=== PATIENT | female | born 1985 | race Caucasian/White ===

== ENCOUNTER 2021-08-27 07:30 | Inpatient (IN) ==
--- NOTE | 2021-08-17 14:15 | Anesthesiology Consultation ---
Date of Service August 17, 2021 Assessment & Plan (1) Encounter for pre-operative examination: Chart Review Chart Review: Acceptable Risk for Surgery History Surgery Operation Date: 08/27/21 08:50 Proposed Procedures p Section (Delivery of Baby Through Abdominal Incision) - Erika Cox DO Height/Weight Height: 5 ft 3 in Weight: 81.647 kg Allergies Allergy/AdvReac Type Severity Reaction Status Date / Time Sulfa (Sulfonamide Allergy Intermediate Hives Verified 08/17/21 09:06 Antibiotics) sulfamethoxazole Allergy Mild Hives Verified 08/17/21 09:06 [From Bactrim] trimethoprim [From Bactrim] Allergy Mild Hives Verified 08/17/21 09:06 Medications Home Medications Medication Instructions Recorded Confirmed Last Taken levothyroxine 75 mcg tablet 50 mcg PO QAM 01/08/21 08/17/21 02/19/21 (Synthroid) prenat.vits,martin,[id number] 1 tab PO QDL 01/26/21 08/17/21 02/18/21 breast pump #1 ea 05/04/21 08/15/21 Unknown ferrous sulfate 325 mg (65 mg 325 mg PO QPM 08/17/21 08/17/21 Unknown iron) tablet (Iron (ferrous sulfate)) Past Medical History Medical History (Updated 08/17/21 @ 14:15 by Ruddy Bowen MD) History of chicken pox History of kidney stones Hypothyroidism Nausea and vomiting after administration of anesthetic agent Past Family History Family History Grandmother (Maternal) Breast cancer Mother Depression Grandfather (Maternal) Kidney disease Grandfather (Paternal) Cancer Past Surgical History Surgical History H/O dilation and curettage H/O wisdom tooth extraction History of delivery Hx of lithotripsy S/P debridement WOUND- AFTER C SECTION- WITH WOUND VAC Social History Smoking Status: Never smoker Do You Dip or Chew Tobacco: No Hx Alcohol Use: No Hx Substance Use: No substance use type: does not use Testing Laboratory Results Laboratory Tests 07/19/21 07/19/21 16:48 16:48 Hgb 11.0 L Plt Count 236 Potassium 3.1 L Creatinine 0.72
[~2021-08-27 07:30] MED LIST: CITRIC ACID/SODIUM CITRATE 15 ML UDC PO SCH; ceFAZolin 2000MG 2,000 MG/15 ML SYR IV SCH
[2021-08-27] MEDS ORDERED: OXYTOCIN 30 UNITS/500 ML BAG IV PRN (09:38)
[2021-08-27] MEDS ORDERED: LACTATED RINGER'S 1,000 ML IV PRN (09:38)
[2021-08-27] MEDS ORDERED: LACTATED RINGER'S 1,000 ML IV SCH ×2 (09:45→12:11)
[2021-08-27] MEDS ORDERED: SODIUM CHLORIDE 0.9% 250 ML IV PRN (09:46)
[2021-08-27] MEDS ORDERED: MoRPHine SULFATE PF 1 MG/ML 10 ML AMP/VIAL ONE (10:06)
[2021-08-27] MEDS ORDERED: fentaNYL citrate 100 MCG/2 ML VIAL ONE (10:06)
[2021-08-27] MEDS ORDERED: OXYTOCIN 10 UNITS/ML 10ML VIAL ONE (10:06)
--- NOTE | 2021-08-27 10:18 | History & Physical Report ---
Date of Service August 27, 2021 Assessment & Plan (1) Previous section complicating : Plan: Plan for section, reviewed consent in office. Plans for RAYNA dressing. Questions answered. History of Present Illness Chief Complaint: repeat CS Primary Care Provider: NO PCP 36yo @ 39 03/26, plans for repeat d/t breech presentation. AMA -Weekly NSTs @ 36 weeks Velamentous Cord -Growth US Q4wks starting at 28wks -NSTs weekly at 36wks Hypothyroid *Check TFTs Q4wks Breech Presentation *Already scheduled for 39w CS Previous x1. -Desires - at 20wk changed to wanting RCS C/S SCHEDULED FOR 08/27/[address] BOTELLO - plan for RAYNA dressing NEEDS COVID TEST ON 08/23/2021-ORDERED History of Pituitary Tumor- Prolactinoma -Dr Amaro at [place] follows Allergies Allergy/AdvReac Type Severity Reaction Status Date / Time Sulfa (Sulfonamide Allergy Intermediate Hives Verified 08/24/21 07:01 Antibiotics) sulfamethoxazole Allergy Mild Hives Verified 08/24/21 07:01 [From Bactrim] trimethoprim [From Bactrim] Allergy Mild Hives Verified 08/24/21 07:01 Home Medications Medication Instructions Recorded Confirmed Type levothyroxine 75 mcg tablet 50 mcg PO QAM 01/08/21 08/24/21 History (Synthroid) prenat.vits,martin,[id number] 1 tab PO QDL 01/26/21 08/24/21 History ferrous sulfate 325 mg (65 mg 325 mg PO QPM 08/17/21 08/24/21 History iron) tablet (Iron (ferrous sulfate)) Patient History Medical History History of chicken pox History of kidney stones Hypothyroidism Nausea and vomiting after administration of anesthetic agent Surgical History H/O dilation and curettage H/O wisdom tooth extraction History of delivery Hx of lithotripsy S/P debridement WOUND- AFTER C SECTION- WITH WOUND VAC Family History Grandmother (Maternal) Breast cancer Mother Depression Grandfather (Maternal) Kidney disease Grandfather (Paternal) Cancer Social History Smoking Status: Never smoker Second Hand Exposure: No; Hx Alcohol Use: No Hx Substance Use: No Preferred Language: Arabic Communication Ability: Effective Visual Impairment: No Limitations Hearing Ability: Normal Electronic Engineering Technician Required: No Beliefs That Will Affect Care: None marital status: marital status details: Julien Hurtado (32) [phone] Current Living Situation: Spouse Current Living Situation Comment: , Julien and son, Max- 2y/o current occupational status: employed current occupation: Business reporting- system [employer] Feels Safe at Home: Yes Assistive Devices: None Review of Systems All systems reviewed & are unremarkable except as noted in HPI & below Physical Exam Constitutional: WD/WN, vitals as above Respiratory: normal respiratory effort, lungs clear to auscultation no respiratory distress Cardiovascular: Rate/Rhythm: regular rate and regular rhythm Gastrointestinal (Abdomen): Inspection/Auscultation: abdomen normal to inspection Percussion/Palpation: abdomen soft; abdomen nontender Gravid. No s/s chorio or abruption. Skin: no rashes, warm and dry Psychiatric: A+Ox3, euthymic affect Results & Data ([facility]) Vital Signs (Past 12 Hours) Vital Signs Temp Resp 08/27/21 08:34 36.7 C 18 Code Status & VTE Plan VTE Prophylaxis Plan VTE Prophylaxis will be ordered: No Monitoring External Monitor FHT ascultated on arrival by nursing Coding Level of Care Code None Diagnoses Previous section complicating O34.219
--- NOTE | 2021-08-27 10:27 | History & Physical Bridge Note ---
Date of Service August 27, 2021 History & Physical Bridge Note I have examined the patient, reviewed the History & Physical and in the interval since the performance of the History & Physical I have noted the following changes of clinical significance: no changes noted
[2021-08-27] MEDS ORDERED: PHENYLEPHRINE 100MCG/ML 5ML SYR ONE (10:44)
[2021-08-27] MEDS ORDERED: ONDANSETRON INJ 2 MG/ML 2 ML VIAL ONE (10:44)
[2021-08-27 11:24] LABS: Basophils # (auto) 0.06 K/uL (0-0.2); Basophils % (auto) 0.7 %; Eosinophils # (auto) 0.09 K/uL (0-0.50); Eosinophils % (auto) 1.1 %; Hematocrit (blood only) 35.7 % (34.1-44.9); Immature Granulocytes # (auto) 0.28 K/uL (0.00-0.02); Immature Granulocytes % (auto) 3.3 %; Lymphocytes % (auto) 20.3 %; Mean Corpuscular Hemoglobin 29.7 pg (25.0-34.0); Mean Corpuscular Hgb Conc 33.6 g/dL (32.0-36.0); Mean Corpuscular Volume 88.4 fL (80.0-100.0); Mean Platelet Volume 9.9 fL (9.4-12.3); Monocytes # (auto) 0.64 K/uL (0.24-0.82); Monocytes % (auto) 7.6 %; Platelet Count 232 K/uL (130-400); RDW Coefficient of Variation 14.5 % (11.5-14.5); Red Blood Count 4.04 M/uL (3.93-5.22); White Blood Count 8.37 K/ul (4.8-10.8)
[2021-08-27 11:58] LABS: Base Excess Cord Arterial Bld -8.3 mEq/L (-9-1.8); CO2 Cord Arterial Blood 68 mmHg (39.1-73.5); HCO3 Cord Arterial Blood 22 mmol/L (19.7-28.5); PO2 Cord Arterial Blood 23 mmHg (4.1-31.7); pH Cord Arterial Blood 7.12 (7.1-7.38)
--- NOTE | 2021-08-27 12:01 | Operative Report ---
PG Post Operative Report Pre & Post Diagnosis Operation Date: 08/27/21 09:55 PreOp: h/o , 39+ weeks, Breech presentation PostOp: same I identified the patient and participated in the time-out.: Yes Procedure Operation Date: 08/27/21 09:55 Repeat low transverse section Surgeon Erika Cox, DO Retail Service Technician Lori Nguyễn RN Estimated Blood Loss 600 Findings Consistent with Post-Op Diagnosis Viable female , Apgars 8/8. 2-vessel cord. Normal appearing uterus, fallopian tubes, ovaries. Adhesive disease lower uterine segment. Specimens Placenta, cord blood, cord gas Drains ram clear yellow Anesthesia Type Spinal Disposition Accompanied Patient To Recovery: No Disposition: L&D Indications 36yo @ 39 03/26, h/o x 1, desire for repeat, breech presentation Description of Procedure The patient was seen in her labor and delivery room, risks benefits and alternatives to surgery were reviewed. Informed consent obtained. Questions were answered. She was taken to the operating room, spinal anesthesia was administered. She was then prepared and draped in the usual sterile fashion in the supine position with a leftward tilt. Timeout was confirmed. A Pfannenstiel skin incision was made above prior incision with a scalpel, and carried through to the underlying layer of fascia. Fascia was nicked at midline, and this incision was extended bilaterally. The superior aspect of the fascial incision was grasped with Linda clamps x2, elevated off the underlying rectus abdominis muscles, and dissected sharply and bluntly. In similar fashion, the inferior aspect of the fascial incision was dissected. The rectus abdominis muscles were , and the peritoneum was entered bluntly digitally. This was extended bilaterally. The bladder flap was taken down carefully using Metzenbaum scissors. Using a new scalpel, a low transverse uterine incision was created. Clear amniotic fluid noted. The infant was delivered from a cephalic presentation. The head delivered, followed by shoulders and body. Spontaneous cry on the field. The cord was doubly clamped and cut, and the infant was handed off to the [facility] printed circuit board pcb draftsman. A segment was retained for cord gases. Cord blood was obtained. The placenta was delivered spontaneously intact. The uterus was exteriorized, and cleared of all clots and debris. The hysterotomy incision was reapproximated using 0 Vicryl in a running locked stitch. A second layer of the same suture was used to imbricate the incision. Posterior uterus was evaluated and normal. Figure of eight sutures used of 2-0 Vicryl to obtain excellent hemostasis. The uterus was returned to the abdomen, and gutters were cleared of clots and debris. Excellent hemostasis was observed. The fascial incision was reapproximated using 0 Vicryl in a running stitch. The subcutaneous tissue was irrigated, and reapproximated using 2-0 plain gut in a running stitch. The skin was reapproximated using 4-0 Vicryl in a running subcuticular stitch. RAYNA dressing applied. The patient tolerated the procedure well, and will be taken to the recovery area in stable and good condition. I attest to the content of the Intraoperative Record and any orders documented therein. Any exceptions are noted below. OB Procedure Charges 08808
[2021-08-27 12:03] LABS: Oxygen Sat Cord Arterial Blood < 60.0 % (<60)
[2021-08-27 12:05] LABS: Base Excess Cord Venous Blood -2.2 mEq/L (-7.7-1.9); Cord Venous Blood HCO3 25 mmol/L (18.4-26.8); Cord Venous Blood PCO2 49 mmHg (30.4-57.2); Cord Venous Blood PO2 43 mmHg (14.1-43.3); Cord Venous Blood pH 7.31 (7.20-7.44); O2 Saturation Cord Venous Bld 67.4 % (<68)
[2021-08-27] MEDS ORDERED: MAGNESIUM HYDROXIDE SUSP 30 ML UDC PO PRN (12:11)
[2021-08-27] MEDS ORDERED: diphenhydrAMINE 50 MG/ML VIAL IV PRN ×2 (12:11→15:48)
[2021-08-27] MEDS ORDERED: HYDROCORTISONE ACETATE 25 MG SUPP PR PRN (12:11)
[2021-08-27] MEDS ORDERED: BENZOCAINE 20% AER SPR 82.5 GM CAN EXT PRN (12:11)
[2021-08-27] MEDS ORDERED: oxyCODONE/ACETAMINOPHEN 5mg/325mg TAB PO PRN (12:11)
[2021-08-27] MEDS ORDERED: PROMETHAZINE HCL 25 MG in SODIUM CHLORIDE 0.9% 50 ML IV PRN (12:11)
[2021-08-27] MEDS ORDERED: ONDANSETRON INJ 2 MG/ML 2 ML VIAL IV PRN ×2 (12:11→15:48)
[2021-08-27] MEDS ORDERED: diphenhydrAMINE Capsule 25 MG CAP PO PRN (12:11)
[2021-08-27] MEDS ORDERED: SENNA 8.6 MG TAB PO PRN (12:11)
[2021-08-27] MEDS ORDERED: DIPHTHERIA/TETANUS/PERTUSSIS 0.5 ML SYR/VIAL IM ONE (12:11)
[2021-08-27] MEDS ORDERED: KETOROLAC 30 MG/ML VIAL IV PRN (12:11)
[2021-08-27] MEDS ORDERED: OXYTOCIN 30 UNITS in LACTATED RINGER'S 1,000 ML IV SCH (12:30)
[2021-08-27] MEDS: SIMETHICONE 80 MG CHEW PO SCH ×2 (14:04→17:27)
--- NOTE | 2021-08-27 14:39 | Anesthesiology Progress Note ---
Date of Service August 27, 2021 Anesthesia Post Procedure Vital Signs Vital Signs: Temp Pulse Resp BP Pulse Ox 08/27/21 14:23 67 140/81 08/27/21 14:22 75 98 08/27/21 14:17 77 98 08/27/21 14:12 75 97 08/27/21 14:07 66 95 08/27/21 14:02 68 97 08/27/21 13:57 65 93 08/27/21 13:53 68 159/83 H 08/27/21 13:52 68 94 08/27/21 13:47 70 94 08/27/21 13:42 74 96 08/27/21 13:40 16 08/27/21 13:37 65 94 08/27/21 13:32 60 94 08/27/21 13:27 72 98 08/27/21 13:22 64 94 08/27/21 13:17 60 148/85 H 96 08/27/21 13:12 62 97 08/27/21 13:10 16 08/27/21 13:07 72 138/77 98 08/27/21 13:02 90 99 08/27/21 13:00 36.4 C L 16 08/27/21 12:58 61 142/82 H 08/27/21 12:57 59 L 98 08/27/21 12:52 66 98 08/27/21 12:50 16 08/27/21 12:48 65 144/66 H 08/27/21 12:47 73 98 08/27/21 12:42 65 98 08/27/21 12:40 16 08/27/21 12:38 73 141/79 H 08/27/21 12:37 72 98 08/27/21 12:32 77 99 08/27/21 12:30 18 08/27/21 12:27 77 99 08/27/21 12:22 64 122/72 98 08/27/21 12:20 18 08/27/21 12:17 61 124/74 99 08/27/21 12:12 76 134/82 98 08/27/21 12:10 18 08/27/21 12:07 64 105/51 L 99 08/27/21 12:02 73 115/73 99 08/27/21 12:00 36.4 C L 18 08/27/21 11:57 74 121/63 97 08/27/21 08:34 36.7 C 18 Pain Intensity Lower Abdomen: Pain Intensity: 4 Transfer of Care Handoff Completed per policy Notes Mental Status: alert / awake / arousable Patient Amnestic to Procedure: Yes Nausea / Vomiting: adequately controlled Pain: adequately controlled Airway Patency, RR, SpO2: stable & adequate BP & HR: stable & adequate Hydration State: stable & adequate Neuraxial Anesthesia: was administered and sensory block is resolving Anesthetic Complications: no major complications apparent and Pt Satisfied with anesthetic care
[2021-08-27] MEDS ORDERED: HYDROmorphone INJ 0.5 MG/0.5 ML SYR IV PRN (15:48)
[2021-08-27] MEDS ORDERED: NALOXONE HCL 0.4 MG/1 ML VIAL/CARP IV PRN (15:48)
[2021-08-27] MEDS ORDERED: MoRPHine SULFATE PF 1 MG/ML 10 ML AMP/VIAL INT SPINAL ONE (15:48)
[2021-08-27] MEDS ORDERED: NALOXONE HCL 0.08 MG in SYRINGE 1.8 ML IV PRN (15:48)
[2021-08-27] MEDS ORDERED: LACTATED RINGER'S 500 ML IV PRN (15:48)
[2021-08-27] MEDS ORDERED: NALOXONE HCL 1 MG in SODIUM CHLORIDE 0.9% 1000ML 1,000 ML IV PRN (15:48)
[2021-08-27] MEDS ORDERED: NALBUPHINE HCL INJ 10 MG/ML AMP IV PRN (15:48)
[2021-08-27] MEDS ORDERED: ePHEDrine sulfate 50 MG/ML AMP IV PRN (15:48)
--- NOTE | 2021-08-27 15:52 | Obstetrical Progress Note ---
Date of Service August 27, 2021 Assessment & Plan Admission and Anticipated Discharge Date Admission Date: August 27, 2021 Subjective Called to patient room by RN. Patient stating "I cannot speak normally." Cabrera leger was lying in bed, fan on in room, awake and talking. Able to follow commands. Stated to me that she felt drowsy. She has been nauseated this afternoon, and rec'd a dose of phenergan 25mg about 30 minutes ago. Gen: AAOx3, anxious. Talking, able to answer all questions appropriately. No obvious slurring of speech. Abdomen soft, appropriate tenderness. RAYNA dressing clean/dry. No abdominal di stension. No vaginal bleeding. Vitals wnl. Will check labs STAT. I think this is likely a reaction to the Phenergan, however will check labs. Patient reassured by this. Results & Data ([facility]) Vital Signs (Past 12 Hours) Vital Signs Temp Pulse Resp BP Pulse Ox 08/27/21 14:23 67 140/81 08/27/21 14:22 75 98 08/27/21 14:17 77 98 08/27/21 14:12 75 97 08/27/21 14:10 36.7 C 16 08/27/21 14:07 66 95 08/27/21 14:02 68 97 08/27/21 13:57 65 93 08/27/21 13:53 68 159/83 H 08/27/21 13:52 68 94 08/27/21 13:47 70 94 08/27/21 13:42 74 96 08/27/21 13:40 16 08/27/21 13:37 65 94 08/27/21 13:32 60 94 08/27/21 13:27 72 98 08/27/21 13:22 64 94 08/27/21 13:17 60 148/85 H 96 08/27/21 13:12 62 97 08/27/21 13:10 16 08/27/21 13:07 72 138/77 98 08/27/21 13:02 90 99 08/27/21 13:00 36.4 C L 16 08/27/21 12:58 61 142/82 H 08/27/21 12:57 59 L 98 08/27/21 12:52 66 98 08/27/21 12:50 16 08/27/21 12:48 65 144/66 H 08/27/21 12:47 73 98 08/27/21 12:42 65 98 08/27/21 12:40 16 08/27/21 12:38 73 141/79 H 08/27/21 12:37 72 98 08/27/21 12:32 77 99 08/27/21 12:30 18 08/27/21 12:27 77 99 08/27/21 12:22 64 122/72 98 08/27/21 12:20 18 08/27/21 12:17 61 124/74 99 08/27/21 12:12 76 134/82 98 08/27/21 12:10 18 08/27/21 12:07 64 105/51 L 99 08/27/21 12:02 73 115/73 99 08/27/21 12:00 36.4 C L 18 08/27/21 11:57 74 121/63 97 08/27/21 08:34 36.7 C 18 PG Care Time/CCT Total # of Minutes Spent Total Time Spent with Patient: Total time spent is greater than 50% in coordination of care (as documented) at patient's floor/unit and/or counseling patient: Coding Level of Care Code None
[2021-08-27] MEDS ORDERED: SODIUM CHLORIDE 0.9% 1000ML 1,000 ML IV SCH (16:00)
[2021-08-27] MEDS ORDERED: DC INTRASPINAL MORPHINE SCH (16:00)
[2021-08-27] MEDS ORDERED: NO NARCOTICS OR SEDATIVES SCH (16:00)
[2021-08-27 16:21] LABS: Hematocrit (blood only) 38.6 % (34.1-44.9); Hemoglobin 12.9 g/dl (12.0-16.0); Mean Corpuscular Hemoglobin 30.2 pg (25.0-34.0); Mean Corpuscular Hgb Conc 33.4 g/dL (32.0-36.0); Mean Corpuscular Volume 90.4 fL (80.0-100.0); Mean Platelet Volume 9.5 fL (9.4-12.3); Platelet Count 208 K/uL (130-400); RDW Coefficient of Variation 14.4 % (11.5-14.5); RDW Standard Deviation 45.6 fL (36.4-46.3); Red Blood Count 4.27 M/uL (3.93-5.22); White Blood Count 12.97 K/ul (4.8-10.8)
[2021-08-27 16:24] LABS: Albumin Globulin Ratio 1.1 (0.9-2); Albumin Level 3.1 gm/dl (3.4-5.0); BUN Creatinine Ratio 11.7 (10-20); Bilirubin,Total 0.4 mg/dl (0.2-1.0); Calcium 8.5 mg/dl (8.5-10.1); Creatinine Clr Calc Pharmacy 132.3 ml/min; Est GFR (African American) 135.9 ml/min; Est GFR (Non-African American) 117.3 ml/min; Globulin 2.9 gm/dl (2.5-4.0); Potassium 3.3 mmol/L (3.5-5.1)
[2021-08-27] MEDS: KETOROLAC 30 MG/ML VIAL IV PRN (19:54)
[2021-08-28] MEDS: SIMETHICONE 80 MG CHEW PO SCH ×5 (00:32→21:20)
[2021-08-28] MEDS: DOCUSATE SODIUM 100 MG CAP PO SCH ×3 (00:33→21:20)
--- NOTE | 2021-08-28 05:07 | Obstetrical Progress Note ---
Date of Service <Valeria Eagle DO - Last Filed: 08/28/21 06:14> August 28, 2021 Assessment & Plan <Valeria Eagle DO - Last Filed: 08/28/21 06:14> (1) Status post section: plan for d/c Matos, do a trial of OOB and ambulation and then progress diet as tolerated <Erika Cox, DO - Last Filed: 08/28/21 07:49> (1) Status post section: Subjective <Valeria Eagle, DO - Last Filed: 08/28/21 06:14> Brittany is a 36 y/o female who is POD #1 following delivery at 39 2/7. She reports feeling well overall this morning. Some abdominal cramping 6/10 & pain well managed on analgesics. Matos still in place, passing gas but no bowel movement. Tolerating fluids. Not able to ambulate yet. Has some persi stent lochia with some improvement this morning. Currently breast feeding. Review of Systems Denies fever, chills, sweats Denies shortness of breath, difficulty breathing, chest pain, palpitations, chest pressure. Denies breast pain. Denies dysuria Denies headache or changes in vision. Physical Exam <Valeria Eagle DO - Last Filed: 08/28/21 06:14> General: Alert, oriented. No acute distress. Cardiac: Regular rate and rhythm, no murmurs/rubs/gallops. Respiratory: Clear to auscultation bilaterally a/p, no wheezes/rales/rhonchi. No increased work of breathing. Symmetrical chest rise. No respiratory distress. Abdomen: Soft, nontender, nondistended. Bowel sounds present. Uterus: Uterine fundus firm. Lower Extremities: No lower extremity edema or swelling. No deep calf pain. Ally's negative bilaterally. Results & Data ([facility]) <Valeria Eagle, DO - Last Filed: 08/28/21 06:14> Vital Signs (Past 12 Hours) Vital Signs Temp Pulse Resp BP Pulse Ox 08/28/21 04:00 37.1 C 80 18 136/88 98 08/28/21 03:00 18 98 08/28/21 02:00 17 95 08/28/21 01:00 16 95 08/28/21 00:16 36.8 C 91 H 18 136/82 08/28/21 00:00 17 99 08/27/21 23:00 18 98 08/27/21 22:00 16 94 08/27/21 21:00 16 97 08/27/21 20:00 37.1 C 84 16 142/91 H 98 08/27/21 19:15 18 95 08/27/21 18:15 18 96 08/27/21 17:05 36.9 C 84 18 153/83 H 97 <Erika Cox, - Last Filed: 08/28/21 07:49> Co-Signing Physician Notes Resident Physician Supervision Note: I was present with Dr. Eagle during the history and exam. I discussed the case with the resident and agree with the findings and plan as documented in the note. Any exceptions or clarifications are listed here: POD#1 doing well. Routine postop care. Documented By: Erika Cox DO Resident Activity Tracking <Valeria Eagle, - Last Filed: 08/28/21 06:14> Resident Involvement: Resident Care Provided Care Provided: OB Delivery (Post )
[2021-08-28] MEDS ORDERED: ceFAZolin 2000MG 2,000 MG/15 ML SYR IV SCH (06:00)
[2021-08-28] MEDS: KETOROLAC 30 MG/ML VIAL IV PRN (06:16)
[2021-08-28] MEDS: LEVOTHYROXINE SODIUM 50 MCG TABLET PO SCH (06:16)
[2021-08-28 06:45] LABS: Basophils # (auto) 0.06 K/uL (0-0.2); Basophils % (auto) 0.6 %; Eosinophils # (auto) 0.06 K/uL (0-0.50); Eosinophils % (auto) 0.6 %; Hematocrit (blood only) 33.8 % (34.1-44.9); Hemoglobin 11.3 g/dl (12.0-16.0); Immature Granulocytes # (auto) 0.14 K/uL (0.00-0.02); Immature Granulocytes % (auto) 1.3 %; Lymphocytes % (auto) 13.4 %; Mean Corpuscular Hemoglobin 29.5 pg (25.0-34.0); Mean Corpuscular Hgb Conc 33.4 g/dL (32.0-36.0); Mean Corpuscular Volume 88.3 fL (80.0-100.0); Mean Platelet Volume 9.6 fL (9.4-12.3); Monocytes # (auto) 0.64 K/uL (0.24-0.82); Monocytes % (auto) 6.1 %; Neutrophils # (auto) 8.15 K/uL (1.4-6.5); Platelet Count 208 K/uL (130-400); RDW Coefficient of Variation 14.4 % (11.5-14.5); RDW Standard Deviation 44.1 fL (36.4-46.3); Red Blood Count 3.83 M/uL (3.93-5.22); White Blood Count 10.45 K/ul (4.8-10.8)
[2021-08-28] MEDS: FERROUS SULFATE 325 MG TAB PO SCH (08:59)
[2021-08-28] MEDS: PRENATAL VITAMIN 1 TAB PO SCH (08:59)
[2021-08-28] MEDS ORDERED: KETOROLAC 30 MG/ML VIAL IV PRN (09:48)
[2021-08-28] MEDS ORDERED: diphenhydrAMINE Capsule 25 MG CAP PO PRN (09:48)
[2021-08-28] MEDS ORDERED: PROMETHAZINE HCL 25 MG in SODIUM CHLORIDE 0.9% 50 ML IV PRN (09:48)
[2021-08-28] MEDS ORDERED: ONDANSETRON INJ 2 MG/ML 2 ML VIAL IV PRN (09:48)
[2021-08-28] MEDS ORDERED: diphenhydrAMINE 50 MG/ML VIAL IV PRN (09:48)
[2021-08-28] MEDS: oxyCODONE/ACETAMINOPHEN 5mg/325mg TAB PO PRN ×3 (13:33→21:20)
[2021-08-28] MEDS: IBUPROFEN 600 MG TAB PO PRN ×3 (13:34→21:20)
[2021-08-28] MEDS ORDERED: bisacodyL 5 MG TABEC PO SCH (20:00)
[2021-08-29] MEDS: IBUPROFEN 600 MG TAB PO PRN ×2 (02:35→08:38)
[2021-08-29] MEDS: oxyCODONE/ACETAMINOPHEN 5mg/325mg TAB PO PRN ×2 (02:35→08:39)
--- NOTE | 2021-08-29 05:34 | Obstetrical Progress Note ---
Date of Service <Valeria Eagle - Last Filed: 08/29/21 06:38> August 29, 2021 Assessment & Plan <Valeria Eagle - Last Filed: 08/29/21 06:38> (1) Status post section: Plan Matos d/c yesterday, continue OOB and ambulation and progress diet as tolerated <Ingrid Amaro MD, FACOG - Last Filed: 08/29/21 07:54> (1) Status post section: Subjective <Valeriaalejandro Eagle - Last Filed: 08/29/21 06:38> Brittany is a 36 y/o female who is POD 2 following delivery at 39 2/7. She reports feeling well overall this morning. Some abdominal cramping, pain level about the same from yesterday, pain well managed on analgesics. Matos is out and she is voiding, passing gas but no bowel movement. Tolerating full diet. Able to ambulate some. Has some persistent lochia with some improvement this morning. Currently breast feeding. Review of Systems Denies fever, chills, sweats Denies shortness of breath, difficulty breathing, chest pain, palpitations, chest pressure. Denies breast pain. Denies dysuria. Denies headache or changes in vision. Physical Exam <Valeria CruzChriss Fco - Last Filed: 08/29/21 06:38> General: Alert, oriented. No acute distress. Cardiac: Regular rate and rhythm, no murmurs/rubs/gallops. Respiratory: Clear to auscultation bilaterally a/p, no wheezes/rales/rhonchi. No increased work of breathing. Symmetrical chest rise. No respiratory distress. Abdomen: Soft, nontender, nondistended. Bowel sounds present. Uterus: Uterine fundus firm. Lower Extremities: No lower extremity edema or swelling. No deep calf pain. Ally's negative bilaterally. Results & Data ([facility]) <Valeria CruzChriss Fco - Last Filed: 08/29/21 06:38> Vital Signs (Past 12 Hours) Vital Signs Temp Pulse Resp BP Pulse Ox O2 Del Method 08/28/21 19:45 36.7 C 86 20 139/89 96 Room Air <Ingrid Amaro MD, FACOG - Last Filed: 08/29/21 07:54> Co-Signing Physician Notes Resident Physician Supervision Note: I was present with Dr. Eagle during the history and exam. I discussed the case with the resident and agree with the findings and plan as documented in the note. Any exceptions or clarifications are listed here: stable, routine care. eating, voiding, ambulating, +Flatus, pain control ok. not sure if wants to go home later today. instructions reviewed if decides. aware of pain meds and limited use of narcotics. f/u 6 wk ppcheck. Not sure of plan with RAYNA dressing, will need to d/w provider about plan Documented By: Ingrid Amaro MD, FACOG Resident Activity Tracking <Valeria Eagle, DO - Last Filed: 08/29/21 06:38> Resident Involvement: Resident Care Provided Care Provided: OB Delivery (Post )
[2021-08-29] MEDS: LEVOTHYROXINE SODIUM 50 MCG TABLET PO SCH (06:01)
[2021-08-29 06:21] LABS: Hematocrit (blood only) 32.9 % (34.1-44.9); Hemoglobin 10.7 g/dl (12.0-16.0)
[2021-08-29] MEDS: SIMETHICONE 80 MG CHEW PO SCH (08:38)
[2021-08-29] MEDS: PRENATAL VITAMIN 1 TAB PO SCH (08:38)
[2021-08-29] MEDS: DOCUSATE SODIUM 100 MG CAP PO SCH (08:38)
[2021-08-29] MEDS: FERROUS SULFATE 325 MG TAB PO SCH (08:38)
[2021-08-29] MEDS ORDERED: bisacodyL 10 MG SUPP PR PRN (11:53)
== END 2021-08-29 14:20 | disposition home or self-care (01) | DRG 788 ==
LOC: 4S1 09:38 → EDSTATUS 09:55 → 4E2 14:48